=== PATIENT | female | born 1995 | race Hispanic/Latino ===

== ENCOUNTER 2018-01-09 16:02 | Emergency (ER) | payer SELFPAY ==
[2018-01-09] MEDS ORDERED: ACETAMINOPHEN-CODEINE 300/30MG TAB ONE (17:23)
[2018-01-09] MEDS ORDERED: IBUPROFEN 600 MG TABLET ONE (17:23)
== END 2018-01-09 17:51 | disposition home or self-care (01) ==
LOC: EDH 16:02
DX: S43.491A Other sprain of right shoulder joint, initial encounter (principal); F32.9 Major depressive disorder, single episode, unspecified; F41.9 Anxiety disorder, unspecified; X58.XXXA Exposure to other specified factors, initial encounter; Y93.89 Activity, other specified; Y92.009 Unspecified place in unspecified non-institutional (private) residence as the place of occurrence of the external cause; Y99.8 Other external cause status
CPT/HCPCS: 73030